=== PATIENT | female | born 2000 | race Caucasian/White ===

== ENCOUNTER 2025-02-22 21:20 | Emergency (ER) | payer OTHER, BC ==
[~2025-02-22] VITALS: Ht 167.6 cm; Wt 80.0 kg
[2025-02-22 22:06] VITALS: BP 135/92
[2025-02-24 09:04] LABS: HEPATITIS B SURFACE ANTIBODY >1000.00 IU/L (())
[2025-02-24 15:55] LABS: HIV 1,2 COMBO ANTIGEN/ANTIBODY Negative (Negative)
[2025-02-24 16:51] LABS: HEPATITIS C AB CIA INTERP Negative (Negative); HEPATITIS C ANTIBODY CIA INDEX 0.04 IV (())
== END 2025-02-22 22:07 | disposition home or self-care (01) ==
LOC: ED 21:20
PROVIDERS: Family Medicine
DX: S61.231A Puncture wound without foreign body of left index finger without damage to nail, initial encounter (principal); W46.1XXA Contact with contaminated hypodermic needle, initial encounter; Z88.5 Allergy status to narcotic agent
CPT/HCPCS: 36415; 84460; 86706; 86803; 99283